=== PATIENT | male | born 1970 | race Caucasian/White ===

== ENCOUNTER 2017-10-11 17:05 | Inpatient (IN) | payer OTHER ==
[2017-10-11] MEDS ORDERED: Aspirin 325 mg EC Tablets PO STA (19:13)
--- NOTE | 2017-10-11 19:13 | C.PDOC ---
History Of Present Illness Patient, history of insulin dependent diabetes, comes in complaining of chest pain, radiating to his left arm since yesterday. He states the pain is dull, aching and pressure-like and is 4/10. He denies any associated fever, chills, nausea or vomiting. Time Seen by Provider: 10/11/17 19:12 Chief Complaint (Nursing): Chest Pain History Per: Patient History/Exam Limitations: no limitations Onset/Duration Of Symptoms: Days (1) Current Symptoms Are (Timing): Still Present Pain Scale Rating Of: 4 Quality: Dull, Aching, Pressure Associated Symptoms: denies: Nausea, Dyspnea, Diaphoresis, Syncope Modifying Factors: None Exacerbating Factors: None Alleviating Factors: None Recent travel outside of the [place]: No Additional History Per: Patient Past Medical History Reviewed: Historical Data, Nursing Documentation, Vital Signs Vital Signs: Last Vital Signs Temp 97.9 F 10/11/17 21:53 Pulse 54 L 10/11/17 21:53 Resp 14 10/11/17 21:53 BP 144/84 10/11/17 21:53 Pulse Ox 100 10/11/17 21:53 - Medical History PMH: Diabetes (insulin dependent) Surgical History: No Surg Hx Family History: States: No Known Family Hx - Social History Hx Alcohol Use: No Hx Substance Use: No - Immunization History Hx Tetanus Toxoid Vaccination: No Hx Influenza Vaccination: No Hx Pneumococcal Vaccination: No Review Of Systems Constitutional: Negative for: Fever, Chills, Sweats Eyes: Negative for: Redness ENT: Negative for: Throat Pain Cardiovascular: Positive for: Chest Pain Respiratory: Negative for: Shortness of Breath Gastrointestinal: Negative for: Vomiting Genitourinary: Negative for: Dysuria Musculoskeletal: Negative for: Back Pain Skin: Negative for: Rash Neurological: Negative for: Weakness Psych: Negative for: Anxiety Physical Exam - Physical Exam Appears: Non-toxic, No Acute Distress Skin: Warm, Dry Head: Atraumatic Eye(s): bilateral: Normal Inspection Oral Mucosa: Moist Throat: No Erythema, No Exudate, No Drooling, No Mass Neck: Supple Chest: Symmetrical, No Tenderness Cardiovascular: Rhythm Regular, No Murmur Respiratory: No Rales, No Rhonchi, No Wheezing Gastrointestinal/Abdominal: Soft, No Tenderness, No Guarding Back: No CVA Tenderness, No Vertebral Tenderness Extremity: No Tenderness, No Pedal Edema, No Deformity Extremity: Bilateral: Atraumatic, Normal Color And Temperature Pulses: Left Dorsalis Pedis: Normal, Right Dorsalis Pedis: Normal Neurological/Psych: Oriented x3, Normal Speech, Normal Cognition Gait: Steady ED Course And Treatment - Laboratory Results Result Diagrams: 10/11/17 19:23 10/11/17 19:54 ECG: Interpreted By Me, Viewed By Me ECG Rhythm: Sinus Rhythm (64), Nonspecific Changes (freq pvc's) O2 Sat by Pulse Oximetry: 100 (RA) Pulse Ox Interpretation: Normal - Radiology CXR: Interpreted by Me, Viewed By Me CXR Interpretation: No: Infiltrates, Fracture, Pnemothorax Progress Note: Labs, EKG, CXR and UA ordered. Patient given Aspirin 325mg PO. Disposition Discussed With DrSaurav: Raf Agustin Comment: accepted the pt on his service and took over the care at 10PM Doctor Will See Patient In The: ED Counseled Patient/Family Regarding: Studies Performed, Diagnosis - Disposition Disposition: HOSPITALIZED Disposition Time: 22:15 Condition: FAIR Forms: [employer] (Georgian) - POA Present On Arrival: Poor Glycemic Control - Clinical Impression Clinical Impression: Chest pain, PVC (premature ventricular contraction) - Scribe Statement The provider has reviewed the documentation as recorded by the Cecil Banerjee Provider Attestation: All medical record entries made by the Cecil were at my direction and personally dictated by me. I have reviewed the chart and agree that the record accurately reflects my personal performance of the history, physical exam, medical decision making, and the department course for this patient. I have also personally directed, reviewed, and agree with the discharge instructions and disposition. Decision To Admit - Pt Status Changed To: Hospital Disposition Of: Inpatient - Admit Certification Admit to Inpatient:: After my assessment, the patient will require hospitalization for at least two midnights. This is because of the severity of symptoms shown, intensity of services needed, and/or the medical risk in this patient being treated as an outpatient. - InPatient: Physician Admission Certification: I certify that this patient requires 2 or more midnights of care for the following reason:: After my assessment, the patient will require hospitalization for at least two midnights. This is because of the severity of symptoms shown, intensity of services needed, and/or the medical risk in this patient being treated as an outpatient - . Bed Request Type: Telemetry Admitting Physician: Raf Agustin Patient Diagnosis: Chest pain, PVC (premature ventricular contraction)
[2017-10-11 19:25] LABS: BASO # 0.2 K/uL (0.0-0.2); BASO % 1.9 % (0.0-2.0); EOS # 0.7 K/uL (0.0-0.7); EOS % 6.6 % (0.0-4.0); HEMOGLOBIN 16.4 g/dL (12.0-18.0); LYMPH # 3.6 K/uL (1.0-4.3); MEAN CELL VOLUME 81.3 fL (80.0-94.0); MEAN CORPUSCULAR HEMOGLOBIN 27.8 pg (27.0-31.0); MEAN CORPUSCULAR HGB CONC 34.2 g/dL (33.0-37.0); MEAN PLATELET VOLUME 9.7 fL (7.2-11.7); MONO # 0.6 K/uL (0.0-0.8); MONO % 6.1 % (0.0-10.0); NEUT # 5.2 K/uL (1.8-7.0); NEUT % 50.4 % (50.0-75.0); NRBC % 0.4 % (0.0-2.0); RBC 5.9 Mil/uL (4.40-5.90); RED CELL DISTRIBUTION WIDTH 13.6 % (11.5-14.5); WHITE BLOOD COUNT 10.3 K/uL (4.8-10.8)
[2017-10-11] MEDS ORDERED: Aspirin 325 mg EC Tablets PO ONE (19:37)
[2017-10-11 19:54] LABS: VENOUS BLOOD GAS BASE EXCESS -5.4 mmol/L (0.0-2.0); VENOUS BLOOD GAS PCO2 34 mmHg (40-60); VENOUS BLOOD GAS PO2 35 mm/Hg (30-55); VENOUS BLOOD PH 7.36 (7.32-7.43)
[2017-10-11 20:01] LABS: SQUAMOUS EPITHIAL < 1 /hpf (0-5); URINE BILIRUBIN NEGATIVE (NEGATIVE); URINE BLOOD NEGATIVE (NEGATIVE); URINE CLARITY Clear (Clear); URINE COLOR Yellow (YELLOW); URINE GLUCOSE (UA) 3+ mg/dL (Normal); URINE LEUKOCYTE ESTERASE NEG Leu/uL (Negative); URINE PROTEIN NEGATIVE (NEGATIVE); URINE UROBILINOGEN NORMAL mg/dL (0.2-1.0)
[2017-10-11 20:09] LABS: ALB/GLOB RATIO 1.6 (1.0-2.1); ALBUMIN 4.4 g/dL (3.5-5.0); ALT/SGPT 35 U/L (21-72); AST/SGOT 25 U/L (17-59); BLOOD UREA NITROGEN 18 mg/dL (9-20); CALCIUM 10.2 mg/dl (8.6-10.4); GFR NON-AFRICAN AMERICAN > 60; LIPASE 221 U/L (23-300)
--- NOTE | 2017-10-11 21:06 | RAD ---
HISTORY: chest pain COMPARISON: None available. TECHNIQUE: Chest, one view. FINDINGS: Examination limited by habitus. LUNGS: Mild pulmonary venous congestion. No focal consolidation. Please note that chest x-ray has limited sensitivity for the detection of pulmonary masses. PLEURA: No significant pleural effusion identified. No definite pneumothorax . CARDIOVASCULAR: Heart size appears within normal limits. OSSEOUS STRUCTURES: No acute osseous abnormality identified. VISUALIZED UPPER ABDOMEN: Unremarkable. OTHER FINDINGS: None. IMPRESSION: Mild pulmonary venous congestion.
[2017-10-12] MEDS ORDERED: Iodixanol 320 MG/ML 100 ML BOTTLE IV ONE (00:02)
[2017-10-12] MEDS ORDERED: Glucagon Recombinant 1 mg Inj IM PRN (02:08)
[2017-10-12] MEDS ORDERED: Dextrose 50% SYRINGE Inj (50 ml) IV PRN (02:08)
--- NOTE | 2017-10-12 02:11 | CP.PCM.HP ---
<VeroniqueRoxana L. - Last Filed: 10/12/17 03:28> History of Present Illness - History of Present Illness History of Present Illness: CC: SOB and chest pain HPI: 47 M with a PMH of type II diabetes and hep C (treated in 2009) presents to the ED with SOB and chest pain. Patient states the SOB started last night after walking up the stairs and moving his bed. Patient states he has associated dizziness and light headedness with the SOB. The dizziness is characterized as the room is spinning. Patient also states that he has had chest pain radiating to his left shoulder and down his left arm. Patient states that the chest pain started early today (10/12/17) and that he has had associated weakness and stiffness of his left UE. Patient denies any loss of sensation to the left UE. Patient has weakness of his left LE but has contributed the weakness to him not having eaten since the morning. On examination, patient denies fever, chills, nausea, vomiting, diarrhea, changes in urinary or bowel habits. PMH: diabetes, Hep C (treated in 2009) PSHx: none Social: denies smoking, alcohol, and drug use Family Hx: Mother [place] (69 y/o); Father- [place] (70 y/o) Allergies: NKDA Meds: Novolog 70/30 30 units in the morning/20 units in the evening Present on Admission - Present on Admission Any Indicators Present on Admission: No History of DVT/PE: No History of Uncontrolled Diabetes: No Urinary Catheter: No Decubitus Ulcer Present: No Review of Systems - Constitutional Constitutional: absent: Chills, Fever - EENT Eyes: absent: Blurred Vision - Cardiovascular Cardiovascular: Chest Pain, Dyspnea, Dyspnea on Exertion. absent: Palpitations , Pedal Edema - Respiratory Respiratory: Dyspnea - Gastrointestinal Gastrointestinal: Abdominal Pain. absent: Constipation, Diarrhea, Nausea, Vomiting - Genitourinary Genitourinary: absent: Dysuria, Hematuria - Musculoskeletal Musculoskeletal: Myalgias, Numbness (left shoulder ) - Integumentary Integumentary: absent: Rash - Neurological Neurological: Dizziness, Weakness (left arm and left leg ) Past Patient History - Past Social History Smoking Status: Never Smoked - ENDOCRINE/METABOLIC Hx Diabetes Mellitus Type 2: Yes - PSYCHIATRIC Hx Substance Use: No Meds Allergies/Adverse Reactions: Allergies Allergy/AdvReac Type Severity Reaction Status Date / Time No Known Allergies Allergy Verified 10/11/17 17:13 Physical Exam - Constitutional Appears: Non-toxic, No Acute Distress - Head Exam Head Exam: ATRAUMATIC, NORMAL INSPECTION, NORMOCEPHALIC - Eye Exam Eye Exam: EOMI, Normal appearance - ENT Exam ENT Exam: Mucous Membranes Moist - Respiratory Exam Respiratory Exam: Clear to Auscultation Bilateral, NORMAL BREATHING PATTERN - Cardiovascular Exam Cardiovascular Exam: Bradycardia, +S1, +S2 - GI/Abdominal Exam GI & Abdominal Exam: Normal Bowel Sounds, Soft, Tenderness Additional comments: LUQ tenderness - Extremities Exam Extremities exam: Negative for: pedal edema, tenderness - Back Exam Back exam: NORMAL INSPECTION - Neurological Exam Neurological exam: Alert, CN II-XII Intact, Oriented x3 - Expanded Neurological Exam Expanded Cranial nerves: EOM's Intact: Normal, Facial Palsey w/Forehead Movement: Normal , Facial Palsey w/o Forehead Movement: Normal, Facial Sensation: Normal, Nystagmus: Normal, Tongue Deviation: Normal Cerebellar Function: Finger to Nose: Abnormal Left, Heel to [place]: Abnormal Left Upper motor neuron: Babinski Sign: Normal Sensory exam: Lower Extremity 2 Point Discrimination: Normal Neuro motor strength exam: Left Upper Extremity: 4, Right Upper Extremity: 5, Left Lower Extremity: 5, Right Lower Extremity: 5 Coma Scale Eye Opening: SPONTANEOUS Coma Scale Motor Response: OBEYS COMMANDS - Psychiatric Exam Psychiatric exam: Normal Affect, Normal Mood - Skin Skin Exam: Intact, Normal Color, Warm Results - Vital Signs Recent Vital Signs: Last Vital Signs Temp 97.9 F 10/11/17 21:53 Pulse 49 L 10/12/17 01:08 Resp 14 10/12/17 01:08 BP 147/76 10/12/17 01:08 Pulse Ox 100 10/12/17 01:08 - Labs Result Diagrams: 10/11/17 19:23 10/11/17 19:54 Labs: Laboratory Results - last 24 hr 10/11/17 10/11/17 10/11/17 19:23 19:38 19:50 WBC 10.3 RBC 5.90 Hgb 16.4 Hct 48.0 MCV 81.3 MCH 27.8 MCHC 34.2 RDW 13.6 Plt Count 310 MPV 9.7 Neut % (Auto) 50.4 Lymph % (Auto) 35.0 [place] % (Auto) 6.1 Eos % (Auto) 6.6 H Baso % (Auto) 1.9 Neut # (Auto) 5.2 Lymph # (Auto) 3.6 [place] # (Auto) 0.6 Eos # (Auto) 0.7 Baso # (Auto) 0.2 pO2 35 VBG pH 7.36 VBG pCO2 34 L VBG HCO3 19.8 VBG Total CO2 20.2 L VBG O2 Sat (Calc) 70.2 H VBG Base Excess -5.4 L VBG Potassium 2.7 L Sodium 143.0 Chloride 112.0 H Glucose 207 H Lactate 1.2 Potassium Carbon Dioxide Anion Gap BUN Creatinine Est GFR ( Amer) Est GFR (Non-Af Amer) Random Glucose Calcium Total Bilirubin AST ALT Alkaline Phosphatase Troponin I Total Protein Albumin Globulin Albumin/Globulin Ratio Lipase Venous Blood Potassium 2.7 L Urine Color Yellow Urine Clarity Clear Urine pH 5.0 Ur Specific Cato 1.014 Urine Protein Negative Urine Glucose (UA) 3+ H Urine Ketones Negative Urine Blood Negative Urine Nitrate Negative Urine Bilirubin Negative Urine Urobilinogen Normal Ur Leukocyte Esterase Neg Urine WBC (Auto) < 1 Ur Squamous Epith Cells < 1 B-Hydroxybutyrate 10/11/17 19:54 WBC RBC Hgb Hct MCV MCH MCHC RDW Plt Count MPV Neut % (Auto) Lymph % (Auto) [place] % (Auto) Eos % (Auto) Baso % (Auto) Neut # (Auto) Lymph # (Auto) [place] # (Auto) Eos # (Auto) Baso # (Auto) pO2 VBG pH VBG pCO2 VBG HCO3 VBG Total CO2 VBG O2 Sat (Calc) VBG Base Excess VBG Potassium Sodium 138 Chloride 98 Glucose Lactate Potassium 4.6 Carbon Dioxide 28 Anion Gap 17 BUN 18 Creatinine 1.0 Est GFR ( Amer) > 60 Est GFR (Non-Af Amer) > 60 Random Glucose 271 H Calcium 10.2 Total Bilirubin 1.3 AST 25 ALT 35 Alkaline Phosphatase 67 Troponin I < 0.0120 Total Protein 7.2 Albumin 4.4 Globulin 2.8 Albumin/Globulin Ratio 1.6 Lipase 221 Venous Blood Potassium Urine Color Urine Clarity Urine pH Ur Specific [place] Urine Protein Urine Glucose (UA) Urine Ketones Urine Blood Urine Nitrate Urine Bilirubin Urine Urobilinogen Ur Leukocyte Esterase Urine WBC (Auto) Ur Squamous Epith Cells B-Hydroxybutyrate 0.08 Assessment & Plan - Assessment and Plan (Free Text) Assessment: Chest Pain EKG: NSR at 64bpm with PVCs Troponin I neg f/u KRISTIE x 2 Cxray: mild pulmonary venous congestion CTA: meds: ASA 325mg given in ED ASA 81mg po daily Crestor 5mg po daily Left Side Weakness CT head:no acute findings f/u MRI brain f/u carotid doppler neuro checks q4h Neuro consulted, Dr. Raphael, help appreciated meds: ASA 325mg given in ED ASA 81mg po daily Crestor 5mg po daily Dizziness Meclizine 25mg po one time dose in ER DMII accuchecks q6h hypoglycemia protocol home insulin Novolog 70/30 30 u in am 20 u pm, start with lower dose in hospital f/u HgA1C meds: Novolog 70/30 25u in am and 18 u in pm ISS- low dose Prophylaxis SCDs Pepcid 20mg po daily <Raf Agustin P - Last Filed: 10/12/17 05:23> Results - Vital Signs Recent Vital Signs: Last Vital Signs Temp 97.9 F 10/11/17 21:53 Pulse 49 L 10/12/17 01:08 Resp 14 10/12/17 01:08 BP 147/76 10/12/17 01:08 Pulse Ox 100 10/12/17 01:08 - Labs Result Diagrams: 10/12/17 04:51 10/11/17 19:54 Labs: Laboratory Results - last 24 hr 10/11/17 10/11/17 10/11/17 19:23 19:38 19:50 WBC 10.3 RBC 5.90 Hgb 16.4 Hct 48.0 MCV 81.3 MCH 27.8 MCHC 34.2 RDW 13.6 Plt Count 310 MPV 9.7 Neut % (Auto) 50.4 Lymph % (Auto) 35.0 [place] % (Auto) 6.1 Eos % (Auto) 6.6 H Baso % (Auto) 1.9 Neut # (Auto) 5.2 Lymph # (Auto) 3.6 [place] # (Auto) 0.6 Eos # (Auto) 0.7 Baso # (Auto) 0.2 pO2 35 VBG pH 7.36 VBG pCO2 34 L VBG HCO3 19.8 VBG Total CO2 20.2 L VBG O2 Sat (Calc) 70.2 H VBG Base Excess -5.4 L VBG Potassium 2.7 L Sodium 143.0 Chloride 112.0 H Glucose 207 H Lactate 1.2 Potassium Carbon Dioxide Anion Gap BUN Creatinine Est GFR ( Amer) Est GFR (Non-Af Amer) Random Glucose Calcium Total Bilirubin AST ALT Alkaline Phosphatase Troponin I Total Protein Albumin Globulin Albumin/Globulin Ratio Lipase Venous Blood Potassium 2.7 L Urine Color Yellow Urine Clarity Clear Urine pH 5.0 Ur Specific [place] 1.014 Urine Protein Negative Urine Glucose (UA) 3+ H Urine Ketones Negative Urine Blood Negative Urine Nitrate Negative Urine Bilirubin Negative Urine Urobilinogen Normal Ur Leukocyte Esterase Neg Urine WBC (Auto) < 1 Ur Squamous Epith Cells < 1 B-Hydroxybutyrate 10/11/17 10/12/17 19:54 04:51 WBC 9.5 RBC 5.73 Hgb 15.9 Hct 46.7 MCV 81.6 MCH 27.7 MCHC 33.9 RDW 13.4 Plt Count 287 MPV 9.1 Neut % (Auto) 50.8 Lymph % (Auto) 32.8 [place] % (Auto) 6.4 Eos % (Auto) 7.9 H Baso % (Auto) 2.1 H Neut # (Auto) 4.8 Lymph # (Auto) 3.1 [place] # (Auto) 0.6 Eos # (Auto) 0.7 Baso # (Auto) 0.2 pO2 VBG pH VBG pCO2 VBG HCO3 VBG Total CO2 VBG O2 Sat (Calc) VBG Base Excess VBG Potassium Sodium 138 Chloride 98 Glucose Lactate Potassium 4.6 Carbon Dioxide 28 Anion Gap 17 BUN 18 Creatinine 1.0 Est GFR ( Amer) > 60 Est GFR (Non-Af Amer) > 60 Random Glucose 271 H Calcium 10.2 Total Bilirubin 1.3 AST 25 ALT 35 Alkaline Phosphatase 67 Troponin I < 0.0120 Total Protein 7.2 Albumin 4.4 Globulin 2.8 Albumin/Globulin Ratio 1.6 Lipase 221 Venous Blood Potassium Urine Color Urine Clarity Urine pH Ur Specific [place] Urine Protein Urine Glucose (UA) Urine Ketones Urine Blood Urine Nitrate Urine Bilirubin Urine Urobilinogen Ur Leukocyte Esterase Urine WBC (Auto) Ur Squamous Epith Cells B-Hydroxybutyrate 0.08 Attending/Attestation - Attestation I have personally seen and examined this patient.: Yes I have fully participated in the care of the patient.: Yes I have reviewed all pertinent clinical information: Yes Notes (Text): 10/12/17 05:13 47 M from [place] on business trip to [place] arrived 4 day back, h/o uncontrolled dm on insulin, chronic sock like peripheral neuropathy, h/o hep c s/p treatment , h/o htn, presented with c/o chest discomfort for 1.5 days, SOB for same, left arm stiffness on 10/11 am, dizzness/vertigo positional in the ER was bradycardic and had pvc on EKG Exam findings were numbness on whole left side except the face, left arm 4/5 right arm 5/5, left leg 3/5, right leg 4/5, planters equivocal, slight nystagmus but presence of vertigo more on turning head right vs left, with nausea, no facial weakness, no dysarthia, no swallowing difficulty, positive rhomberg's test, with swaying front and back, wide gait. CT head in ER showed no acute changes CTA chest was done in view of his recent travel was negative for PE Plan DD of CVA/TIA of brain stem, BPV, atypical chest pain NIHHS score 4, duration > 3 hrs, not the candidate for thrombolysis To do MRI of brain, Echo, carotid doppler ASA, crestor Insulin to continue in lower dose due to being in hospital Hemoglobin A1C Neuro check Neurology consult See orders for detail. NIHSS Stroke Scale - Date/Time Evaluation Performed Date Performed: 10/11/17 Time Performed: 11:00 When Was NIHSS Performed: Baseline - How Severe is the Stoke Level of Consciousness: 0=Alert LOC to Questions: 0=Both comments correct LOC to commands: 0=Obeys both correctly Best Gaze: 0=Normal Visual: 0=No visual loss Facial: 0=Normal Motor Arm - Left: 0=No drift Motor Arm - Right: 0=No drift Motor Leg - Left: 2=Falls before 5 sec Motor Leg - Right: 1=Drift before 5 sec Limb Ataxia: 0=Absent Sensory: 1=Mild to moderate loss Best Language: 0=No aphasia Dysarthia: 0=Normal articulation Extinction & Inattention (Neglect): 0=Normal, no object Score: 4 Severity Of Stroke: 1-4= Minor Stroke (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 Past window of thrombolysis.)
[2017-10-12 05:03] LABS: BASO # 0.2 K/uL (0.0-0.2); BASO % 2.1 % (0.0-2.0); EOS # 0.7 K/uL (0.0-0.7); EOS % 7.9 % (0.0-4.0); HEMOGLOBIN 15.9 g/dL (12.0-18.0); LYMPH # 3.1 K/uL (1.0-4.3); LYMPH % 32.8 % (20.0-40.0); MEAN CELL VOLUME 81.6 fL (80.0-94.0); MEAN CORPUSCULAR HEMOGLOBIN 27.7 pg (27.0-31.0); MEAN CORPUSCULAR HGB CONC 33.9 g/dL (33.0-37.0); MEAN PLATELET VOLUME 9.1 fL (7.2-11.7); MONO # 0.6 K/uL (0.0-0.8); MONO % 6.4 % (0.0-10.0); NEUT # 4.8 K/uL (1.8-7.0); NEUT % 50.8 % (50.0-75.0); NRBC % 0.2 % (0.0-2.0); RBC 5.73 Mil/uL (4.40-5.90); RED CELL DISTRIBUTION WIDTH 13.4 % (11.5-14.5); WHITE BLOOD COUNT 9.5 K/uL (4.8-10.8)
[2017-10-12 05:29] LABS: LDL CHOLESTEROL 91 mg/dL (0-129)
[2017-10-12 05:52] LABS: ALB/GLOB RATIO 1.3 (1.0-2.1); ALBUMIN 4.1 g/dL (3.5-5.0); ALT/SGPT 35 U/L (21-72); AST/SGOT 34 U/L (17-59); BLOOD UREA NITROGEN 17 mg/dL (9-20); CALCIUM 9.5 mg/dl (8.6-10.4); GFR NON-AFRICAN AMERICAN > 60; HDL CHOLESTEROL 33 mg/dL (30-70)
--- NOTE | 2017-10-12 08:15 | CT ---
Date of service: 10/12/2017 PROCEDURE: CT HEAD WITHOUT CONTRAST. HISTORY: left sided weakness, r/o CVA COMPARISON: None available. TECHNIQUE: Axial computed tomography images were obtained through the head/brain without intravenous contrast. Radiation dose: Total exam DLP = 768 mGy-cm. This CT exam was performed using one or more of the following dose reduction techniques: Automated exposure control, adjustment of the mA and/or kV according to patient size, and/or use of iterative reconstruction technique. FINDINGS: HEMORRHAGE: No intracranial hemorrhage. BRAIN: No mass effect or edema. No atrophy or chronic microvascular ischemic changes. VENTRICLES: Unremarkable. No hydrocephalus. CALVARIUM: Unremarkable. PARANASAL SINUSES: Moderate patchy sinus mucosal disease. Moderate mucosal thickening of the ethmoid air cells. MASTOID AIR CELLS: Unremarkable as visualized. No inflammatory changes. OTHER FINDINGS: None. IMPRESSION: No acute intracranial abnormality. If there is persistent concern for acute ischemic change, consider correlation with MRI. These findings were preliminarily reported at 12:58 a.m. on 10/12/[address] Fracisco Sim from [facility].
[2017-10-12] MEDS ORDERED: (Novolin R) Insulin Human Regular 100 units/ml vial ONE (08:17)
[2017-10-12] MEDS: (Novolin R) Insulin Human Regular 100 units/ml vial SC SCH ×4 (08:17→21:47)
--- NOTE | 2017-10-12 10:17 | CP.PCM.PN ---
Subjective - Date & Time of Evaluation Date of Evaluation: 10/12/17 Time of Evaluation: 10:14 - Subjective Subjective: Pt seen and examined at bedside. Pt reports his left sided weakness has improved but remains noticeable. Pt is concerned about his diabetes and wants insulin. Pt has no complaints of numbness/tingling, LOC, dizziness, change in vision, change in speech, memory loss or dysphagia. Pt denies cp, cob, f/c, n/v , leg pains Objective - Vital Signs/Intake and Output Vital Signs (last 24 hours): Temp Pulse Resp BP Pulse Ox 97.9 F 74 16 134/89 99 10/12/17 10:11 10/12/17 10:11 10/12/17 10:11 10/12/17 10:11 10/12/17 10:11 - Medications Medications: Current Medications Aspirin (Ecotrin) 81 mg PO DAILY KISHAN Dextrose (Dextrose 50% Inj) 0 ml IV STAT PRN; Protocol PRN Reason: Hypoglycemia Protocol Dextrose (Glutose 15) 0 gm PO ONCE PRN; Protocol PRN Reason: Hypoglycemia Protocol Famotidine (Pepcid) 20 mg PO DAILY KISHAN Glucagon (Glucagen Diagnostic Kit) 0 mg IM STAT PRN; Protocol PRN Reason: Hypoglycemia Protocol Dextrose (Dextrose 5% In Water 1000 Ml) 1,000 mls @ 0 mls/hr IV .Q0M PRN; Protocol; Per Protocol PRN Reason: Hypoglycemia Protocol Insulin Aspart (Novolog Mix 70/30 (70/30 Units/Ml)) 25 units SC DAILY KISHAN Insulin Aspart (Novolog Mix 70/30 (70/30 Units/Ml)) 18 units SC HS [facility] Insulin Human Regular (Novolin R) 0 unit SC ACHS KISHAN PRN Reason: Protocol Last Admin: 10/12/17 08:17 Dose: 2 units Rosuvastatin Calcium (Crestor) 5 mg PO HS KISHAN - Labs Labs: 10/12/17 04:51 10/12/17 04:51 - Constitutional Appears: Well, Non-toxic, No Acute Distress - Eye Exam Eye Exam: EOMI, Normal appearance, PERRL. absent: Scleral icterus - Neck Exam Neck Exam: Normal Inspection - Respiratory Exam Respiratory Exam: Clear to Ausculation Bilateral, NORMAL BREATHING PATTERN. absent: Wheezes, Respiratory Distress, Stridor - Cardiovascular Exam Cardiovascular Exam: RRR, +S1, +S2. absent: Murmur - GI/Abdominal Exam GI & Abdominal Exam: Soft, Normal Bowel Sounds. absent: Tenderness, Diminished Bowel Sounds - Extremities Exam Extremities Exam: Normal Capillary Refill, Normal Inspection. absent: Pedal Edema, Tenderness Additional comments: L michael: ROM decreased in flex, ext, abduction, interna;l and external rotation Positive campbell, apprehension, neer's - Back Exam Back Exam: NORMAL INSPECTION - Neurological Exam Neurological Exam: Alert, Awake, CN II-XII Intact, Oriented x3 Neuro motor strength exam: Left Upper Extremity: 5, Right Upper Extremity: 5, Left Lower Extremity: 5 Additional comments: normal cerebellar nose finger test normal sensation in extremities neg pronator drift Assessment and Plan - Assessment and Plan (Free Text) Assessment: Chest Pain -ASA 81mg po daily -Crestor 5mg po daily -EKG: NSR at 64bpm with PVCs -Troponin I neg x 3 -KRISTIE neg x 2 -Cxray: mild pulmonary venous congestion -CTA: neg for PE -trigly: 297 Left Side Weakness -CT head:no acute findings -f/u morning CT ordered -NEG carotid doppler -neuro checks q4h -Neuro consulted, Dr. Raphael, help appreciated -oral hygiene -L michael Xray f/u Dizziness Meclizine 25mg po one time dose in ER DMII -Novolog 70/30 25u AM daily and 18u HS -ISS- low dose -accuchecks q6h -hypoglycemia protocol -10.1 HgA1C DM neuropathy -glucose control -gabapentin 100mg TID Prophylaxis SCDs Pepcid 20mg po daily
--- NOTE | 2017-10-12 10:40 | CT ---
Date of service: 10/12/2017 CTA chest PE protocol Indication: Shortness of breath, recent travel Technique: Contiguous axial images were obtained through the chest with intravenous contrast enhancement. Sagittal and coronal reconstructions were generated and reviewed. This CT exam was performed using 1 or more of the following dose reduction techniques: Automated exposure control, adjustment of the MAA and/or kV according to patient size, and/or use of iterative reconstruction technique. IV Contrast: 100 mL Visipaque 320 Radiation dose (DLP): 298.96 MGy-cm. Comparison: Chest x-ray performed 10/11/17 Findings: Visualized portions of the inferior thyroid gland appear heterogeneous. The mediastinal and hilar vascular structures appear within normal limits. The heart appears within normal limits of size. No large central or segmental pulmonary embolus evident. Patchy ground-glass opacities/ infiltrates. Minimal peribronchial cuffing. No focal consolidation. No pleural effusion. No pneumothorax. No suspicious pulmonary nodules measuring greater than 5 mm. Limited visualized portions of the upper abdomen appear grossly unremarkable. No acute osseous abnormality is detected. Impression: No large central or segmental pulmonary embolus. Patchy ground-glass opacities/ infiltrates. Minimal peribronchial cuffing. Correlate clinically. Additional findings as above. Preliminary impression was provided by [facility].
[2017-10-12] MEDS: (Novolog Mix 70/30) Insulin Aspart/Insulin Aspar 100 units/ml SC SCH (11:04)
--- NOTE | 2017-10-12 11:58 | CP.PCM.CON ---
<Micki Rojas - Last Filed: 10/12/17 17:10> History of Present Illness - History of Present Illness History of Present Illness: Cardiology Consult Note - Dr Manzano Patient is a 47 year old male with past medical history of diabetes mellitus who presented to the emergency dept for chest pain and shortness of breath. Patient states that he walking up the stairs yesterday and after the second flight, he started experiencing chest pain. Chest pain was left sided and radiates down the left arm. Described the pain as dull in nature. When pain started it was 7/10 on the pain scale. Never happened to him before. Denies any alleviating and exacerbating factors. Chest pain was associated with shortness of breath. Shortness of breath is worse on exertion. Patient recently traveled [place] the [place] from the [place] 6 [place] ago. Also reports having left arm weakness. Allergies: NKDA Medical History: Diabetes Mellitus, Hepatitis C (treated) Medications: Novolog 70/30 30 units in the morning/20 units in the evening, ASA 81mg PO daily Surgical History: Denies Social History: Denies alcohol, tobacco, drug use Family History: Mother - [place] at age 69, Father - [place] at age 70 Past Patient History - Past Social History Smoking Status: Never Smoked - ENDOCRINE/METABOLIC Hx Diabetes Mellitus Type 2: Yes - PSYCHIATRIC Hx Substance Use: No Meds Allergies/Adverse Reactions: Allergies Allergy/AdvReac Type Severity Reaction Status Date / Time No Known Allergies Allergy Verified 10/11/17 17:13 - Medications Medications: Current Medications Aspirin (Ecotrin) 81 mg PO DAILY [facility] Last Admin: 10/12/17 11:05 Dose: 81 mg Dextrose (Dextrose 50% Inj) 0 ml IV STAT PRN; Protocol PRN Reason: Hypoglycemia Protocol Dextrose (Glutose 15) 0 gm PO ONCE PRN; Protocol PRN Reason: Hypoglycemia Protocol Famotidine (Pepcid) 20 mg PO DAILY [facility] Last Admin: 10/12/17 11:05 Dose: 20 mg Glucagon (Glucagen Diagnostic Kit) 0 mg IM STAT PRN; Protocol PRN Reason: Hypoglycemia Protocol Dextrose (Dextrose 5% In Water 1000 Ml) 1,000 mls @ 0 mls/hr IV .Q0M PRN; Protocol; Per Protocol PRN Reason: Hypoglycemia Protocol Insulin Aspart (Novolog Mix 70/30 (70/30 Units/Ml)) 25 units SC DAILY [facility] Last Admin: 10/12/17 11:04 Dose: 25 units Insulin Aspart (Novolog Mix 70/30 (70/30 Units/Ml)) 18 units SC HS [facility] Insulin Human Regular (Novolin R) 0 unit SC [facility] PRN Reason: Protocol Last Admin: 10/12/17 08:17 Dose: 2 units Rosuvastatin Calcium (Crestor) 5 mg PO HS [facility] Physical Exam - Constitutional Appears: Well, No Acute Distress - Head Exam Head Exam: ATRAUMATIC, NORMAL INSPECTION - Eye Exam Eye Exam: EOMI, Normal appearance - ENT Exam ENT Exam: Mucous Membranes Moist - Respiratory Exam Respiratory Exam: Clear to Auscultation Bilateral, NORMAL BREATHING PATTERN. absent: Rales, Rhonchi, Wheezes - Cardiovascular Exam Cardiovascular Exam: REGULAR RHYTHM, +S1, +S2 - GI/Abdominal Exam GI & Abdominal Exam: Soft. absent: Normal Bowel Sounds - Extremities Exam Extremities exam: Positive for: normal inspection - Neurological Exam Neurological exam: Alert, Oriented x3 - Psychiatric Exam Psychiatric exam: Normal Affect, Normal Mood - Skin Skin Exam: Normal Color, Warm Results - Vital Signs Recent Vital Signs: Last Vital Signs Temp 97.9 F 10/12/17 10:11 Pulse 74 10/12/17 10:11 Resp 18 10/12/17 10:13 BP 134/89 10/12/17 10:11 Pulse Ox 99 10/12/17 10:11 - Labs Result Diagrams: 10/12/17 04:51 10/12/17 04:51 Labs: Laboratory Results - last 24 hr 10/11/17 10/11/17 10/11/17 19:23 19:38 19:50 WBC 10.3 RBC 5.90 Hgb 16.4 Hct 48.0 MCV 81.3 MCH 27.8 MCHC 34.2 RDW 13.6 Plt Count 310 MPV 9.7 Neut % (Auto) 50.4 Lymph % (Auto) 35.0 [place] % (Auto) 6.1 Eos % (Auto) 6.6 H Baso % (Auto) 1.9 Neut # (Auto) 5.2 Lymph # (Auto) 3.6 [place] # (Auto) 0.6 Eos # (Auto) 0.7 Baso # (Auto) 0.2 pO2 35 VBG pH 7.36 VBG pCO2 34 L VBG HCO3 19.8 VBG Total CO2 20.2 L VBG O2 Sat (Calc) 70.2 H VBG Base Excess -5.4 L VBG Potassium 2.7 L Sodium 143.0 Chloride 112.0 H Glucose 207 H Lactate 1.2 Potassium Carbon Dioxide Anion Gap BUN Creatinine Est GFR ( Amer) Est GFR (Non-Af Amer) POC Glucose (mg/dL) Random Glucose Hemoglobin A1c Calcium Phosphorus Magnesium Total Bilirubin AST ALT Alkaline Phosphatase Total Creatine Kinase CK-MB (Mass) Troponin I Total Protein Albumin Globulin Albumin/Globulin Ratio Triglycerides Cholesterol LDL Cholesterol Direct HDL Cholesterol Lipase Free T4 TSH 3rd Generation Venous Blood Potassium 2.7 L Urine Color Yellow Urine Clarity Clear Urine pH 5.0 Ur Specific [place] 1.014 Urine Protein Negative Urine Glucose (UA) 3+ H Urine Ketones Negative Urine Blood Negative Urine Nitrate Negative Urine Bilirubin Negative Urine Urobilinogen Normal Ur Leukocyte Esterase Neg Urine WBC (Auto) < 1 Ur Squamous Epith Cells < 1 B-Hydroxybutyrate 10/11/17 10/12/17 10/12/17 19:54 04:51 04:51 WBC 9.5 RBC 5.73 Hgb 15.9 Hct 46.7 MCV 81.6 MCH 27.7 MCHC 33.9 RDW 13.4 Plt Count 287 MPV 9.1 Neut % (Auto) 50.8 Lymph % (Auto) 32.8 [place] % (Auto) 6.4 Eos % (Auto) 7.9 H Baso % (Auto) 2.1 H Neut # (Auto) 4.8 Lymph # (Auto) 3.1 [place] # (Auto) 0.6 Eos # (Auto) 0.7 Baso # (Auto) 0.2 pO2 VBG pH VBG pCO2 VBG HCO3 VBG Total CO2 VBG O2 Sat (Calc) VBG Base Excess VBG Potassium Sodium 138 137 Chloride 98 99 Glucose Lactate Potassium 4.6 4.5 Carbon Dioxide 28 26 Anion Gap 17 16 BUN 18 17 Creatinine 1.0 0.9 Est GFR ( Amer) > 60 > 60 Est GFR (Non-Af Amer) > 60 > 60 POC Glucose (mg/dL) Random Glucose 271 H 268 H Hemoglobin A1c Calcium 10.2 9.5 Phosphorus 3.9 Magnesium 1.9 Total Bilirubin 1.3 1.5 H AST 25 34 ALT 35 35 Alkaline Phosphatase 67 75 Total Creatine Kinase CK-MB (Mass) Troponin I < 0.0120 Total Protein 7.2 7.4 Albumin 4.4 4.1 Globulin 2.8 3.3 Albumin/Globulin Ratio 1.6 1.3 Triglycerides 279 H Cholesterol 164 LDL Cholesterol Direct 91 HDL Cholesterol 33 Lipase 221 Free T4 TSH 3rd Generation 2.00 Venous Blood Potassium Urine Color Urine Clarity Urine pH Ur Specific [place] Urine Protein Urine Glucose (UA) Urine Ketones Urine Blood Urine Nitrate Urine Bilirubin Urine Urobilinogen Ur Leukocyte Esterase Urine WBC (Auto) Ur Squamous Epith Cells B-Hydroxybutyrate 0.08 10/12/17 10/12/17 10/12/17 04:51 04:51 04:51 WBC RBC Hgb Hct MCV MCH MCHC RDW Plt Count MPV Neut % (Auto) Lymph % (Auto) [place] % (Auto) Eos % (Auto) Baso % (Auto) Neut # (Auto) Lymph # (Auto) [place] # (Auto) Eos # (Auto) Baso # (Auto) pO2 VBG pH VBG pCO2 VBG HCO3 VBG Total CO2 VBG O2 Sat (Calc) VBG Base Excess VBG Potassium Sodium Chloride Glucose Lactate Potassium Carbon Dioxide Anion Gap BUN Creatinine Est GFR ( Amer) Est GFR (Non-Af Amer) POC Glucose (mg/dL) Random Glucose Hemoglobin A1c 10.4 H Calcium Phosphorus Magnesium Total Bilirubin AST ALT Alkaline Phosphatase Total Creatine Kinase 78 CK-MB (Mass) 0.40 Troponin I < 0.0120 Total Protein Albumin Globulin Albumin/Globulin Ratio Triglycerides Cholesterol LDL Cholesterol Direct HDL Cholesterol Lipase Free T4 1.26 TSH 3rd Generation Venous Blood Potassium Urine Color Urine Clarity Urine pH Ur Specific [place] Urine Protein Urine Glucose (UA) Urine Ketones Urine Blood Urine Nitrate Urine Bilirubin Urine Urobilinogen Ur Leukocyte Esterase Urine WBC (Auto) Ur Squamous Epith Cells B-Hydroxybutyrate 10/12/17 10/12/17 06:15 07:38 WBC RBC Hgb Hct MCV MCH MCHC RDW Plt Count MPV Neut % (Auto) Lymph % (Auto) [place] % (Auto) Eos % (Auto) Baso % (Auto) Neut # (Auto) Lymph # (Auto) [place] # (Auto) Eos # (Auto) Baso # (Auto) pO2 VBG pH VBG pCO2 VBG HCO3 VBG Total CO2 VBG O2 Sat (Calc) VBG Base Excess VBG Potassium Sodium Chloride Glucose Lactate Potassium Carbon Dioxide Anion Gap BUN Creatinine Est GFR ( Amer) Est GFR (Non-Af Amer) POC Glucose (mg/dL) 243 H 245 H Random Glucose Hemoglobin A1c Calcium Phosphorus Magnesium Total Bilirubin AST ALT Alkaline Phosphatase Total Creatine Kinase CK-MB (Mass) Troponin I Total Protein Albumin Globulin Albumin/Globulin Ratio Triglycerides Cholesterol LDL Cholesterol Direct HDL Cholesterol Lipase Free T4 TSH 3rd Generation Venous Blood Potassium Urine Color Urine Clarity Urine pH Ur Specific [place] Urine Protein Urine Glucose (UA) Urine Ketones Urine Blood Urine Nitrate Urine Bilirubin Urine Urobilinogen Ur Leukocyte Esterase Urine WBC (Auto) Ur Squamous Epith Cells B-Hydroxybutyrate Assessment & Plan - Assessment and Plan (Free Text) Assessment: A/P: Patient is a 47 year old male with past medical history of Diabetes Mellitus on Insulin and Hepatits C (treated in 2009) who presented with chest pain and shortness of breath Chest pain r/o ACS -Stable, afebrile -Monitor on telemetry -EKG on admission was sinus rhythm with PVCs -Troponins negative x 3 -ASCVD score 6.2% of cardiovascular event in next 10 years -Given risk factors, will order stress test for tomorrow -NPO for breakfast Diabetes Mellitus -HgbA1C 10.4 -Continue insulin and accuchecks ACHS Hypertriglyceridemia -Triglycerides 279, Cholesterol 164, LDL 91, HDL 33 -Continue Crestor 5mg PO HS Left arm weakness -F/U MRI brain -Neurology on consult, help appreciated Plan to be discussed with Dr Jose Juan HOLLAND PGY-2 <Edu Manzano - Last Filed: 10/12/17 23:21> Meds - Medications Medications: Current Medications Aspirin (Ecotrin) 81 mg PO DAILY [facility] Last Admin: 10/12/17 11:05 Dose: 81 mg Dextrose (Dextrose 50% Inj) 0 ml IV STAT PRN; Protocol PRN Reason: Hypoglycemia Protocol Dextrose (Glutose 15) 0 gm PO ONCE PRN; Protocol PRN Reason: Hypoglycemia Protocol Famotidine (Pepcid) 20 mg PO DAILY [facility] Last Admin: 10/12/17 11:05 Dose: 20 mg Gabapentin (Neurontin) 100 mg PO TID [facility] Last Admin: 10/12/17 17:31 Dose: 100 mg Glucagon (Glucagen Diagnostic Kit) 0 mg IM STAT PRN; Protocol PRN Reason: Hypoglycemia Protocol Dextrose (Dextrose 5% In Water 1000 Ml) 1,000 mls @ 0 mls/hr IV .Q0M PRN; Protocol; Per Protocol PRN Reason: Hypoglycemia Protocol Insulin Aspart (Novolog Mix 70/30 (70/30 Units/Ml)) 25 units SC DAILY [facility] Last Admin: 10/12/17 11:04 Dose: 25 units Insulin Aspart (Novolog Mix 70/30 (70/30 Units/Ml)) 18 units SC [facility] Last Admin: 10/12/17 21:45 Dose: 18 units Insulin Human Regular (Novolin R) 0 unit SC [facility] PRN Reason: Protocol Last Admin: 10/12/17 21:47 Dose: Not Given Lisinopril (Zestril) 2.5 mg PO DAILY [facility] Last Admin: 10/12/17 14:39 Dose: 2.5 mg Pneumococcal Polyvalent Vaccine (Pneumovax 23 Vaccine) 0.5 ml IM .ONCE ONE Stop: 10/14/17 10:01 Rosuvastatin Calcium (Crestor) 5 mg PO [facility] Last Admin: 10/12/17 21:47 Dose: 5 mg Results - Vital Signs Recent Vital Signs: Last Vital Signs Temp 97.8 F 10/12/17 16:00 Pulse 46 L 10/12/17 16:00 Resp 20 10/12/17 16:00 BP 126/74 10/12/17 16:00 Pulse Ox 95 10/12/17 16:00 - Labs Result Diagrams: 10/12/17 04:51 10/12/17 04:51 Labs: Laboratory Results - last 24 hr 10/12/17 10/12/17 10/12/17 04:51 04:51 04:51 WBC 9.5 RBC 5.73 Hgb 15.9 Hct 46.7 MCV 81.6 MCH 27.7 MCHC 33.9 RDW 13.4 Plt Count 287 MPV 9.1 Neut % (Auto) 50.8 Lymph % (Auto) 32.8 [place] % (Auto) 6.4 Eos % (Auto) 7.9 H Baso % (Auto) 2.1 H Neut # (Auto) 4.8 Lymph # (Auto) 3.1 [place] # (Auto) 0.6 Eos # (Auto) 0.7 Baso # (Auto) 0.2 Sodium 137 Potassium 4.5 Chloride 99 Carbon Dioxide 26 Anion Gap 16 BUN 17 Creatinine 0.9 Est GFR ( Amer) > 60 Est GFR (Non-Af Amer) > 60 POC Glucose (mg/dL) Random Glucose 268 H Hemoglobin A1c 10.4 H Calcium 9.5 Phosphorus 3.9 Magnesium 1.9 Total Bilirubin 1.5 H AST 34 ALT 35 Alkaline Phosphatase 75 Total Creatine Kinase CK-MB (Mass) Troponin I Total Protein 7.4 Albumin 4.1 Globulin 3.3 Albumin/Globulin Ratio 1.3 Triglycerides 279 H Cholesterol 164 LDL Cholesterol Direct 91 HDL Cholesterol 33 Free T4 TSH 3rd Generation 2.00 10/12/17 10/12/17 10/12/17 04:51 04:51 06:15 WBC RBC Hgb Hct MCV MCH MCHC RDW Plt Count MPV Neut % (Auto) Lymph % (Auto) [place] % (Auto) Eos % (Auto) Baso % (Auto) Neut # (Auto) Lymph # (Auto) [place] # (Auto) Eos # (Auto) Baso # (Auto) Sodium Potassium Chloride Carbon Dioxide Anion Gap BUN Creatinine Est GFR ( Amer) Est GFR (Non-Af Amer) POC Glucose (mg/dL) 243 H Random Glucose Hemoglobin A1c Calcium Phosphorus Magnesium Total Bilirubin AST ALT Alkaline Phosphatase Total Creatine Kinase 78 CK-MB (Mass) 0.40 Troponin I < 0.0120 Total Protein Albumin Globulin Albumin/Globulin Ratio Triglycerides Cholesterol LDL Cholesterol Direct HDL Cholesterol Free T4 1.26 TSH 3rd Generation 10/12/17 10/12/17 10/12/17 07:38 11:47 13:32 WBC RBC Hgb Hct MCV MCH MCHC RDW Plt Count MPV Neut % (Auto) Lymph % (Auto) [place] % (Auto) Eos % (Auto) Baso % (Auto) Neut # (Auto) Lymph # (Auto) [place] # (Auto) Eos # (Auto) Baso # (Auto) Sodium Potassium Chloride Carbon Dioxide Anion Gap BUN Creatinine Est GFR ( Amer) Est GFR (Non-Af Amer) POC Glucose (mg/dL) 245 H 285 H Random Glucose Hemoglobin A1c Calcium Phosphorus Magnesium Total Bilirubin AST ALT Alkaline Phosphatase Total Creatine Kinase 67 CK-MB (Mass) 0.28 Troponin I < 0.0120 Total Protein Albumin Globulin Albumin/Globulin Ratio Triglycerides Cholesterol LDL Cholesterol Direct HDL Cholesterol Free T4 TSH 3rd Generation 10/12/17 15:59 WBC RBC Hgb Hct MCV MCH MCHC RDW Plt Count MPV Neut % (Auto) Lymph % (Auto) [place] % (Auto) Eos % (Auto) Baso % (Auto) Neut # (Auto) Lymph # (Auto) [place] # (Auto) Eos # (Auto) Baso # (Auto) Sodium Potassium Chloride Carbon Dioxide Anion Gap BUN Creatinine Est GFR ( Amer) Est GFR (Non-Af Amer) POC Glucose (mg/dL) 247 H Random Glucose Hemoglobin A1c Calcium Phosphorus Magnesium Total Bilirubin AST ALT Alkaline Phosphatase Total Creatine Kinase CK-MB (Mass) Troponin I Total Protein Albumin Globulin Albumin/Globulin Ratio Triglycerides Cholesterol LDL Cholesterol Direct HDL Cholesterol Free T4 TSH 3rd Generation Assessment & Plan - Assessment and Plan (Free Text) Assessment: Patient seen and evaluated personally by [place] Plan of care d/w the resident and as documented
[2017-10-12 12:31] LABS: CK-MB 0.28 ng/mL (0.0-3.38)
--- NOTE | 2017-10-12 13:45 | CP.PCM.CON ---
History of Present Illness - History of Present Illness History of Present Illness: PGY 1 Consult Note for Neurologist Dr. Raphael Patient is a 47 year old male with PMHx of DM, and Hep-c who came to the ED due to weakness of left arm, and shortness of breath for 24 hours. Patient states that he traveled from [place] last week. Patient also reports of left shoulder pain that is constant, but denies any numbness, or tingling. He also reports of localized chest pain that only worsens with deep breathing, and radiates to his left arm. Denies any dizziness, lightheadedness, nausea, or vomiting. PMHx: DM, Hep-C PSHx: denies Allergies: NKDA Family Hx: mother and father 2/2 to [place] Social Hx: denies tobacco or alcohol use. works as an accountant cost Review of Systems - EENT Eyes: absent: Blurred Vision, Change in Vision - Cardiovascular Cardiovascular: Chest Pain, Dyspnea on Exertion. absent: Lightheadedness, Palpitations - Gastrointestinal Gastrointestinal: Constipation. absent: Diarrhea - Neurological Neurological: absent: Abnormal Movements, Abnormal Speech, Dizziness, Numbness, Tingling Past Patient History - Past Social History Smoking Status: Never Smoked - ENDOCRINE/METABOLIC Hx Diabetes Mellitus Type 2: Yes - PSYCHIATRIC Hx Substance Use: No Meds Allergies/Adverse Reactions: Allergies Allergy/AdvReac Type Severity Reaction Status Date / Time No Known Allergies Allergy Verified 10/11/17 17:13 - Medications Medications: Current Medications Aspirin (Ecotrin) 81 mg PO DAILY [facility] Last Admin: 10/12/17 11:05 Dose: 81 mg Dextrose (Dextrose 50% Inj) 0 ml IV STAT PRN; Protocol PRN Reason: Hypoglycemia Protocol Dextrose (Glutose 15) 0 gm PO ONCE PRN; Protocol PRN Reason: Hypoglycemia Protocol Famotidine (Pepcid) 20 mg PO DAILY [facility] Last Admin: 10/12/17 11:05 Dose: 20 mg Glucagon (Glucagen Diagnostic Kit) 0 mg IM STAT PRN; Protocol PRN Reason: Hypoglycemia Protocol Dextrose (Dextrose 5% In Water 1000 Ml) 1,000 mls @ 0 mls/hr IV .Q0M PRN; Protocol; Per Protocol PRN Reason: Hypoglycemia Protocol Insulin Aspart (Novolog Mix 70/30 (70/30 Units/Ml)) 25 units SC DAILY [facility] Last Admin: 10/12/17 11:04 Dose: 25 units Insulin Aspart (Novolog Mix 70/30 (70/30 Units/Ml)) 18 units SC HS [facility] Insulin Human Regular (Novolin R) 0 unit SC [facility] PRN Reason: Protocol Last Admin: 10/12/17 08:17 Dose: 2 units Rosuvastatin Calcium (Crestor) 5 mg PO HS [facility] Physical Exam - Constitutional Appears: Well, No Acute Distress - Head Exam Head Exam: ATRAUMATIC - Eye Exam Eye Exam: EOMI, Normal appearance Pupil Exam: PERRL - Neurological Exam Neurological exam: Alert, CN II-XII Intact, Oriented x3, Reflexes Normal - Expanded Neurological Exam Expanded Cranial nerves: EOM's Intact: Normal Neuro motor strength exam: Left Upper Extremity: 5, Right Upper Extremity: 5, Left Lower Extremity: 5, Right Lower Extremity: 5 - Psychiatric Exam Psychiatric exam: Normal Affect, Normal Mood Results - Vital Signs Recent Vital Signs: Last Vital Signs Temp 97.9 F 10/12/17 10:11 Pulse 74 10/12/17 10:11 Resp 18 10/12/17 10:13 BP 134/89 10/12/17 10:11 Pulse Ox 99 10/12/17 10:11 - Labs Result Diagrams: 10/12/17 04:51 10/12/17 04:51 Labs: Laboratory Results - last 24 hr 10/11/17 10/11/17 10/11/17 19:23 19:38 19:50 WBC 10.3 RBC 5.90 Hgb 16.4 Hct 48.0 MCV 81.3 MCH 27.8 MCHC 34.2 RDW 13.6 Plt Count 310 MPV 9.7 Neut % (Auto) 50.4 Lymph % (Auto) 35.0 [place] % (Auto) 6.1 Eos % (Auto) 6.6 H Baso % (Auto) 1.9 Neut # (Auto) 5.2 Lymph # (Auto) 3.6 [place] # (Auto) 0.6 Eos # (Auto) 0.7 Baso # (Auto) 0.2 pO2 35 VBG pH 7.36 VBG pCO2 34 L VBG HCO3 19.8 VBG Total CO2 20.2 L VBG O2 Sat (Calc) 70.2 H VBG Base Excess -5.4 L VBG Potassium 2.7 L Sodium 143.0 Chloride 112.0 H Glucose 207 H Lactate 1.2 Potassium Carbon Dioxide Anion Gap BUN Creatinine Est GFR ( Amer) Est GFR (Non-Af Amer) POC Glucose (mg/dL) Random Glucose Hemoglobin A1c Calcium Phosphorus Magnesium Total Bilirubin AST ALT Alkaline Phosphatase Total Creatine Kinase CK-MB (Mass) Troponin I Total Protein Albumin Globulin Albumin/Globulin Ratio Triglycerides Cholesterol LDL Cholesterol Direct HDL Cholesterol Lipase Free T4 TSH 3rd Generation Venous Blood Potassium 2.7 L Urine Color Yellow Urine Clarity Clear Urine pH 5.0 Ur Specific [place] 1.014 Urine Protein Negative Urine Glucose (UA) 3+ H Urine Ketones Negative Urine Blood Negative Urine Nitrate Negative Urine Bilirubin Negative Urine Urobilinogen Normal Ur Leukocyte Esterase Neg Urine WBC (Auto) < 1 Ur Squamous Epith Cells < 1 B-Hydroxybutyrate 10/11/17 10/12/17 10/12/17 19:54 04:51 04:51 WBC 9.5 RBC 5.73 Hgb 15.9 Hct 46.7 MCV 81.6 MCH 27.7 MCHC 33.9 RDW 13.4 Plt Count 287 MPV 9.1 Neut % (Auto) 50.8 Lymph % (Auto) 32.8 [place] % (Auto) 6.4 Eos % (Auto) 7.9 H Baso % (Auto) 2.1 H Neut # (Auto) 4.8 Lymph # (Auto) 3.1 [place] # (Auto) 0.6 Eos # (Auto) 0.7 Baso # (Auto) 0.2 pO2 VBG pH VBG pCO2 VBG HCO3 VBG Total CO2 VBG O2 Sat (Calc) VBG Base Excess VBG Potassium Sodium 138 137 Chloride 98 99 Glucose Lactate Potassium 4.6 4.5 Carbon Dioxide 28 26 Anion Gap 17 16 BUN 18 17 Creatinine 1.0 0.9 Est GFR ( Amer) > 60 > 60 Est GFR (Non-Af Amer) > 60 > 60 POC Glucose (mg/dL) Random Glucose 271 H 268 H Hemoglobin A1c Calcium 10.2 9.5 Phosphorus 3.9 Magnesium 1.9 Total Bilirubin 1.3 1.5 H AST 25 34 ALT 35 35 Alkaline Phosphatase 67 75 Total Creatine Kinase CK-MB (Mass) Troponin I < 0.0120 Total Protein 7.2 7.4 Albumin 4.4 4.1 Globulin 2.8 3.3 Albumin/Globulin Ratio 1.6 1.3 Triglycerides 279 H Cholesterol 164 LDL Cholesterol Direct 91 HDL Cholesterol 33 Lipase 221 Free T4 TSH 3rd Generation 2.00 Venous Blood Potassium Urine Color Urine Clarity Urine pH Ur Specific [place] Urine Protein Urine Glucose (UA) Urine Ketones Urine Blood Urine Nitrate Urine Bilirubin Urine Urobilinogen Ur Leukocyte Esterase Urine WBC (Auto) Ur Squamous Epith Cells B-Hydroxybutyrate 0.08 10/12/17 10/12/17 10/12/17 04:51 04:51 04:51 WBC RBC Hgb Hct MCV MCH MCHC RDW Plt Count MPV Neut % (Auto) Lymph % (Auto) [place] % (Auto) Eos % (Auto) Baso % (Auto) Neut # (Auto) Lymph # (Auto) [place] # (Auto) Eos # (Auto) Baso # (Auto) pO2 VBG pH VBG pCO2 VBG HCO3 VBG Total CO2 VBG O2 Sat (Calc) VBG Base Excess VBG Potassium Sodium Chloride Glucose Lactate Potassium Carbon Dioxide Anion Gap BUN Creatinine Est GFR ( Amer) Est GFR (Non-Af Amer) POC Glucose (mg/dL) Random Glucose Hemoglobin A1c 10.4 H Calcium Phosphorus Magnesium Total Bilirubin AST ALT Alkaline Phosphatase Total Creatine Kinase 78 CK-MB (Mass) 0.40 Troponin I < 0.0120 Total Protein Albumin Globulin Albumin/Globulin Ratio Triglycerides Cholesterol LDL Cholesterol Direct HDL Cholesterol Lipase Free T4 1.26 TSH 3rd Generation Venous Blood Potassium Urine Color Urine Clarity Urine pH Ur Specific [place] Urine Protein Urine Glucose (UA) Urine Ketones Urine Blood Urine Nitrate Urine Bilirubin Urine Urobilinogen Ur Leukocyte Esterase Urine WBC (Auto) Ur Squamous Epith Cells B-Hydroxybutyrate 10/12/17 10/12/17 10/12/17 06:15 07:38 11:47 WBC RBC Hgb Hct MCV MCH MCHC RDW Plt Count MPV Neut % (Auto) Lymph % (Auto) [place] % (Auto) Eos % (Auto) Baso % (Auto) Neut # (Auto) Lymph # (Auto) [place] # (Auto) Eos # (Auto) Baso # (Auto) pO2 VBG pH VBG pCO2 VBG HCO3 VBG Total CO2 VBG O2 Sat (Calc) VBG Base Excess VBG Potassium Sodium Chloride Glucose Lactate Potassium Carbon Dioxide Anion Gap BUN Creatinine Est GFR ( Amer) Est GFR (Non-Af Amer) POC Glucose (mg/dL) 243 H 245 H Random Glucose Hemoglobin A1c Calcium Phosphorus Magnesium Total Bilirubin AST ALT Alkaline Phosphatase Total Creatine Kinase 67 CK-MB (Mass) 0.28 Troponin I < 0.0120 Total Protein Albumin Globulin Albumin/Globulin Ratio Triglycerides Cholesterol LDL Cholesterol Direct HDL Cholesterol Lipase Free T4 TSH 3rd Generation Venous Blood Potassium Urine Color Urine Clarity Urine pH Ur Specific [place] Urine Protein Urine Glucose (UA) Urine Ketones Urine Blood Urine Nitrate Urine Bilirubin Urine Urobilinogen Ur Leukocyte Esterase Urine WBC (Auto) Ur Squamous Epith Cells B-Hydroxybutyrate Assessment & Plan - Assessment and Plan (Free Text) Assessment: A/P discussed with Dr. Raphael 47 y/o male with PMHx of DM presented to the ED with left arm weakness, and shortness of breath 1) R/o CVA - CT Head - No acute changes - MRI - patient refused MRI due to claustrophobia - Will repeat CT Head tomorrow - Continue Aspirin and statin
--- NOTE | 2017-10-12 14:11 | VASCLAB ---
Date of service: 10/12/2017 PROCEDURE: HISTORY: Left side weakness COMPARISON: None available. TECHNIQUE: Grayscale and duplex Doppler evaluation of the cervical carotid and vertebral arteries were performed. The common carotid, carotid bifurcations and cervical Internal Carotid Artery (ICA) and proximal External Carotid Artery (ECA) were evaluated. The vertebral arteries were evaluated for gross patency and flow direction. Report prepared by CRISTINA Snowden FINDINGS: RIGHT CAROTID ARTERIES: 1. Common Carotid Artery: No significant focal plaque formation of the right common carotid artery. Maximum Peak Systolic velocity: 75 cm/sec: End-diastolic velocity 19 cm/sec. 2. Carotid Bifurcation: plaque formation. Maximum Peak Systolic velocity: 33 cm/sec: End-diastolic velocity 10 cm/sec. 3. Internal Carotid Artery: Plaque description: 3.1. Proximal Segment: Peak systolic velocity 49 cm/sec: End-diastolic velocity 17 cm/sec - % stenosis 0-15% 3.2. Middle Segment: Peak systolic velocity 69 cm/sec: End-diastolic velocity 27 cm/sec - % stenosis 0-15% 3.3. Distal Segment: Peak systolic velocity 60 cm/sec: End-diastolic velocity 26 cm/sec - % stenosis 0-15% 4. External Carotid Artery: No significant focal plaque formation. Peak systolic velocity 77 cm/sec 5. ICA/CCA Ratio: 1.2 LEFT CAROTID ARTERIES: 1. Common Carotid Artery: No significant focal plaque formation of the left common carotid artery. Maximum Peak Systolic velocity: 95 cm/sec: End-diastolic velocity 18 cm/sec. 2. Carotid Bifurcation: plaque formation. Maximum Peak Systolic velocity: 46 cm/sec: End-diastolic velocity 12 cm/sec. 3. Internal Carotid Artery: Plaque description: 3.1. Proximal Segment: Peak systolic velocity 58 cm/sec: End-diastolic velocity 22 cm/sec - % stenosis 0-15% 3.2. Middle Segment: Peak systolic velocity 75 cm/sec: End-diastolic velocity 27 cm/sec - % stenosis 0-15% 3.3. Distal Segment: Peak systolic velocity 68 cm/sec: End-diastolic velocity 23 cm/sec - % stenosis 0-15% 4. External Carotid Artery: No significant focal plaque formation. Peak systolic velocity 104 cm/sec 5. ICA/CCA Ratio: 1.4 VERTEBRAL ARTERIES: 1. Right Vertebral Artery: The right vertebral artery flow direction is antegrade. 2. Left Vertebral Artery: The left vertebral artery flow direction is antegrade. OTHER FINDINGS: 1. Right Brachial Blood pressure: 130/80 mmHg. 2. Left Brachial Blood pressure: IV lines IMPRESSION: RIGHT: Duplex scan does not suggest hemodynamically significant stenosis of the right extracranial carotid arteries. LEFT: Duplex scan does not suggest hemodynamically significant stenosis of the left extracranial carotid arteries.
--- NOTE | 2017-10-12 14:54 | RAD ---
Date of service: 10/12/2017 PROCEDURE: Radiographs of the Left Shoulder HISTORY: pain with motion COMPARISON: No prior. FINDINGS: BONES: Normal. No fracture. JOINTS: Normal. Glenohumeral and acromioclavicular joints preserved. No osteoarthritis. SOFT TISSUES: Normal. OTHER FINDINGS: None. IMPRESSION: Normal radiographs of the left shoulder.
[2017-10-12 16:42] VITALS: RESP 20
[2017-10-12] MEDS ORDERED: (Novolog Mix 70/30) Insulin Aspart/Insulin Aspar 100 units/ml SC SCH (22:00)
--- NOTE | 2017-10-12 22:11 | CARD ---
APPROVED REPORT Date of service: 10/12/2017 EXAM: Two-dimensional and M-mode echocardiogram with Doppler and color Doppler. Other Information Quality : GoodRhythm : INDICATION CVA/TIA Dyspnea Chest Pain RISK FACTORS Hypertension Diabetes 2D DIMENSIONS IVSd1.0 (0.7-1.1cm)Aortic Root (2D)3.1 (2.0-3.7cm) LVDd4.2 (3.9-5.9cm)PWd0.7 (0.7-1.1cm) LVDs2.5 (2.5-4.0cm)FS (%) 41.8 % LVEF (%)73.1 (>50%) M-Mode DIMENSIONS RVDd2.34 (2.1-3.2cm)Left Atrium (MM)3.81 (2.5-4.0cm) IVSd0.79 (0.7-1.1cm)Aortic Root2.89 (2.2-3.7cm) LVDd4.95 (4.0-5.6cm)Aortic Cusp Exc.2.11 (1.5-2.0cm) PWd0.88 (0.7-1.1cm)FS (%) 51 % LVDs2.43 (2.0-3.8cm)LVEF (%)70 (>50%) Mitral Valve MV E Pjtygkqu80.6cm/sMV A Ohalgphh10.1cm/sE/A ratio1.7 PISA0.31 cm TDI E/Lateral E'0.0E/Medial E'0.0 Tricuspid Valve TR Peak Trpmvsgc378no/sTR Peak Gr.[id number] LEFT VENTRICLE The left ventricle is normal size. There is normal left ventricular wall thickness. Left ventricle systolic function is normal. The Ejection Fraction is >70%. There is normal LV segmental wall motion. The left ventricular diastolic function is normal. No left ventricle thrombus noted on this study. RIGHT VENTRICLE The right ventricle is normal size. The right ventricular systolic function is normal. ATRIA The left atrium size is normal. The right atrium size is normal. AORTIC VALVE The aortic valve is mildly thickened. The aortic valve is trileaflet. No aortic regurgitation is present. There is no aortic valvular stenosis. There is no aortic valvular vegetation. MITRAL VALVE Mitral annular calcification is mild. There is no evidence of mitral valve prolapse. There is no mitral valve stenosis. Mitral regurgitation is mild. TRICUSPID VALVE The tricuspid valve is normal in structure. There is mild tricuspid regurgitation. Right ventricular systolic pressure is estimated at less than 30 mmHg. There is no pulmonary hypertension. There is no tricuspid valve prolapse or vegetation. There is no tricuspid valve stenosis. PULMONIC VALVE The pulmonic valve is not well visualized. There is trace pulmonic valvular regurgitation. There is no pulmonic valvular stenosis. GREAT VESSELS The aortic root is normal in size. Due to poor image quality, the IVC could not be assessed. PERICARDIAL EFFUSION There is no pericardial effusion. There is no pleural effusion. <Conclusion> The left ventricle is normal size. Left ventricle systolic function is normal. The Ejection Fraction is >70%. The left ventricular diastolic function is normal. The right ventricle is normal size. The right ventricular systolic function is normal. The left atrium size is normal. The right atrium size is normal. Mitral regurgitation is mild. There is mild tricuspid regurgitation. There is trace pulmonic valvular regurgitation.
--- NOTE | 2017-10-12 23:44 | CARD ---
APPROVED REPORT Date of service: 10/11/2017 EKG Measurement Heart [id number] OR [id number] <Conclusion> Sinus rhythm with frequent premature ventricular complexes Otherwise normal ECG
[2017-10-13] MEDS ORDERED: Caffeine Citrated **INJ** 20 MG/ML IV ONE (07:38)
[2017-10-13 07:44] LABS: T4 7.09 ug/dL (5.5-11.0)
[2017-10-13] MEDS: (Novolin R) Insulin Human Regular 100 units/ml vial SC SCH ×2 (08:40→12:19)
[2017-10-13] MEDS: (Novolog Mix 70/30) Insulin Aspart/Insulin Aspar 100 units/ml SC SCH (11:00)
--- NOTE | 2017-10-13 11:06 | CT ---
Date of service: 10/13/2017 PROCEDURE: CT HEAD WITHOUT CONTRAST. HISTORY: Rule out CVA COMPARISON: Comparison made with prior CT scan brain 10/12/2014. TECHNIQUE: Axial computed tomography images were obtained through the head/brain without intravenous contrast. Radiation dose: Total exam DLP = 830.68 mGy-cm. This CT exam was performed using one or more of the following dose reduction techniques: Automated exposure control, adjustment of the mA and/or kV according to patient size, and/or use of iterative reconstruction technique. FINDINGS: HEMORRHAGE: No acute parenchymal, subarachnoid nor extra-axial hemorrhage. No evidence of large acute infarct. Note however that the possibility of a small hyperacute infarct cannot be excluded on this exam therefore clinical correlation recommended. No obvious parenchymal nor extra-axial mass or collection identified on this noncontrast study. Ventricular and sulcal size are within range of normal for this patient's stated age. BRAIN: No mass effect or edema. No atrophy or chronic microvascular ischemic changes. VENTRICLES: No obstructive hydrocephalus. CALVARIUM: Unremarkable. PARANASAL SINUSES: Partial opacification ethmoid air complex. There is also minor mucosal thickening left maxillary antrum and sphenoid sinus. MASTOID AIR CELLS: Unremarkable as visualized. No inflammatory changes. OTHER FINDINGS: None. IMPRESSION: No acute intracranial hemorrhage. Note that the possibility of a tiny hyperacute infarct cannot be excluded and if acute infarct suspected clinically, recommend followup MRI
[2017-10-13 11:43] VITALS: O2SAT 99
--- NOTE | 2017-10-13 13:45 | CP.PCM.PN ---
Subjective - Date & Time of Evaluation Date of Evaluation: 10/13/17 Time of Evaluation: 11:05 - Subjective Subjective: PGY 1 Progress Note for Neurologist Dr. Raphael. Patient seen and examined at bedside. Patient had no overnight events. Patient has new complaints. Patient still has some left shoulder pain, but denies chest pain, SOB, difficulty ambulating, headaches, vision changes. Patient scheduled for second CT head today. Patient refused MRI yesterday 2/2 claustrophobia. Objective - Vital Signs/Intake and Output Vital Signs (last 24 hours): Temp Pulse Resp BP Pulse Ox 97.7 F 58 L 20 123/78 99 10/13/17 11:37 10/13/17 11:37 10/13/17 11:37 10/13/17 11:37 10/13/17 11:37 - Medications Medications: Current Medications Aspirin (Ecotrin) 81 mg PO DAILY [facility] Last Admin: 10/13/17 10:59 Dose: 81 mg Dextrose (Dextrose 50% Inj) 0 ml IV STAT PRN; Protocol PRN Reason: Hypoglycemia Protocol Dextrose (Glutose 15) 0 gm PO ONCE PRN; Protocol PRN Reason: Hypoglycemia Protocol Famotidine (Pepcid) 20 mg PO DAILY [facility] Last Admin: 10/13/17 10:59 Dose: 20 mg Gabapentin (Neurontin) 100 mg PO TID [facility] Last Admin: 10/13/17 10:59 Dose: 100 mg Glucagon (Glucagen Diagnostic Kit) 0 mg IM STAT PRN; Protocol PRN Reason: Hypoglycemia Protocol Dextrose (Dextrose 5% In Water 1000 Ml) 1,000 mls @ 0 mls/hr IV .Q0M PRN; Protocol; Per Protocol PRN Reason: Hypoglycemia Protocol Insulin Aspart (Novolog Mix 70/30 (70/30 Units/Ml)) 25 units SC DAILY [facility] Last Admin: 10/13/17 11:00 Dose: 25 units Insulin Aspart (Novolog Mix 70/30 (70/30 Units/Ml)) 18 units SC HS [facility] Last Admin: 10/12/17 21:45 Dose: 18 units Insulin Human Regular (Novolin R) 0 unit SC ACHS [facility] PRN Reason: Protocol Last Admin: 10/13/17 12:19 Dose: 4 units Lisinopril (Zestril) 2.5 mg PO DAILY [facility] Last Admin: 10/13/17 10:59 Dose: 2.5 mg Pneumococcal Polyvalent Vaccine (Pneumovax 23 Vaccine) 0.5 ml IM .ONCE ONE Stop: 10/14/17 10:01 Rosuvastatin Calcium (Crestor) 5 mg PO HS [facility] Last Admin: 10/12/17 21:47 Dose: 5 mg - Labs Labs: 10/12/17 04:51 10/12/17 04:51 - Constitutional Appears: Well, Non-toxic, No Acute Distress - Eye Exam Eye Exam: EOMI, Normal appearance, PERRL Pupil Exam: NORMAL ACCOMODATION - Neurological Exam Neurological Exam: Alert, Awake, CN II-XII Intact, Normal Gait, Oriented x3 Neuro motor strength exam: Left Upper Extremity: 5, Right Upper Extremity: 5, Left Lower Extremity: 5, Right Lower Extremity: 5 Additional comments: Normal gait Assessment and Plan - Assessment and Plan (Free Text) Assessment: A/P discussed with Dr. Raphael 47 y/o male with PMHx of DM presented to the ED with left arm weakness, and shortness of breath 1) R/o CVA - 2nd CT Head - No acute changes - less likely CVA - MRI - patient refused MRI due to claustrophobia - Continue Aspirin and statin - Cleared from neurology please re-consult if necessary. thank you.
[2017-10-13 14:29] LABS: BASO # 0.1 K/uL (0.0-0.2); BASO % 1.3 % (0.0-2.0); EOS # 0.7 K/uL (0.0-0.7); EOS % 7.7 % (0.0-4.0); HEMOGLOBIN 16.8 g/dL (12.0-18.0); LYMPH # 2.4 K/uL (1.0-4.3); LYMPH % 26.2 % (20.0-40.0); MEAN CELL VOLUME 83.1 fL (80.0-94.0); MEAN CORPUSCULAR HEMOGLOBIN 27.5 pg (27.0-31.0); MEAN CORPUSCULAR HGB CONC 33.1 g/dL (33.0-37.0); MEAN PLATELET VOLUME 9.9 fL (7.2-11.7); MONO # 0.5 K/uL (0.0-0.8); MONO % 5.2 % (0.0-10.0); NEUT # 5.5 K/uL (1.8-7.0); NEUT % 59.6 % (50.0-75.0); NRBC % 0.3 % (0.0-2.0); RBC 6.1 Mil/uL (4.40-5.90); RED CELL DISTRIBUTION WIDTH 14.1 % (11.5-14.5); WHITE BLOOD COUNT 9.3 K/uL (4.8-10.8)
[2017-10-13 14:31] LABS: ALB/GLOB RATIO 1.4 (1.0-2.1); ALBUMIN 4.6 g/dL (3.5-5.0); ALT/SGPT 36 U/L (21-72); AST/SGOT 25 U/L (17-59); BLOOD UREA NITROGEN 13 mg/dL (9-20); CALCIUM 9.4 mg/dl (8.6-10.4); GFR NON-AFRICAN AMERICAN > 60
[2017-10-13 15:52] VITALS: PULSE 56
--- NOTE | 2017-10-13 15:52 | CP.PCM.DIS ---
Provider - Provider Date of Admission: 10/11/17 22:34 Attending physician: Marquez Peralta MD Time Spent in preparation of Discharge (in minutes): 45 Diagnosis - Discharge Diagnosis (1) Arm weakness Status: Resolved (2) Chest pain Status: Resolved (3) PVC (premature ventricular contraction) Status: Resolved Hospital Course - Lab Results Lab Results: Most Recent Lab Values WBC 9.3 K/uL (4.8-10.8) 10/13/17 14:07 RBC 6.10 Mil/uL (4.40-5.90) H 10/13/17 14:07 Hgb 16.8 g/dL (12.0-18.0) 10/13/17 14:07 Hct 50.7 % (35.0-51.0) 10/13/17 14:07 MCV 83.1 fL (80.0-94.0) 10/13/17 14:07 MCH 27.5 pg (27.0-31.0) 10/13/17 14:07 MCHC 33.1 g/dL (33.0-37.0) 10/13/17 14:07 RDW 14.1 % (11.5-14.5) 10/13/17 14:07 Plt Count 301 K/uL (130-400) 10/13/17 14:07 MPV 9.9 fL (7.2-11.7) 10/13/17 14:07 Neut % (Auto) 59.6 % (50.0-75.0) 10/13/17 14:07 Lymph % (Auto) 26.2 % (20.0-40.0) 10/13/17 14:07 Sharkey % (Auto) 5.2 % (0.0-10.0) 10/13/17 14:07 Eos % (Auto) 7.7 % (0.0-4.0) H 10/13/17 14:07 Baso % (Auto) 1.3 % (0.0-2.0) 10/13/17 14:07 Neut # (Auto) 5.5 K/uL (1.8-7.0) 10/13/17 14:07 Lymph # (Auto) 2.4 K/uL (1.0-4.3) 10/13/17 14:07 Sharkey # (Auto) 0.5 K/uL (0.0-0.8) 10/13/17 14:07 Eos # (Auto) 0.7 K/uL (0.0-0.7) 10/13/17 14:07 Baso # (Auto) 0.1 K/uL (0.0-0.2) 10/13/17 14:07 pO2 35 mm/Hg (30-55) 10/11/17 19:50 VBG pH 7.36 (7.32-7.43) 10/11/17 19:50 VBG pCO2 34 mmHg (40-60) L 10/11/17 19:50 VBG HCO3 19.8 mmol/L 10/11/17 19:50 VBG Total CO2 20.2 mmol/L (22-28) L 10/11/17 19:50 VBG O2 Sat (Calc) 70.2 % (40-65) H 10/11/17 19:50 VBG Base Excess -5.4 mmol/L (0.0-2.0) L 10/11/17 19:50 VBG Potassium 2.7 mmol/L (3.6-5.2) L 10/11/17 19:50 Sodium 143.0 mmol/l (132-148) 10/11/17 19:50 Chloride 112.0 mmol/L (98-107) H 10/11/17 19:50 Glucose 207 mg/dl (75-110) H 10/11/17 19:50 Lactate 1.2 mmol/L (0.7-2.1) 10/11/17 19:50 Sodium 138 mmol/L (132-148) 10/13/17 14:07 Potassium 4.0 mmol/L (3.6-5.2) 10/13/17 14:07 Chloride 97 mmol/L (98-107) L 10/13/17 14:07 Carbon Dioxide 25 mmol/L (22-30) 10/13/17 14:07 Anion Gap 20 (10-20) 10/13/17 14:07 BUN 13 mg/dL (9-20) 10/13/17 14:07 Creatinine 0.7 mg/dL (0.8-1.5) L 10/13/17 14:07 Est GFR ( Amer) > 60 10/13/17 14:07 Est GFR (Non-Af Amer) > 60 10/13/17 14:07 POC Glucose (mg/dL) 262 mg/dL (65-110) H 10/13/17 06:07 Random Glucose 335 mg/dL (75-110) H 10/13/17 14:07 Hemoglobin A1c 10.4 % (4.2-6.5) H 10/12/17 04:51 Calcium 9.4 mg/dl (8.6-10.4) 10/13/17 14:07 Phosphorus 3.4 mg/dL (2.5-4.5) 10/13/17 14:07 Magnesium 1.9 mg/dL (1.6-2.3) 10/13/17 14:07 Total Bilirubin 1.5 mg/dL (0.2-1.3) H 10/13/17 14:07 AST 25 U/L (17-59) 10/13/17 14:07 ALT 36 U/L (21-72) 10/13/17 14:07 Alkaline Phosphatase 72 U/L (38-126) 10/13/17 14:07 Total Creatine Kinase 67 U/L (55-170) 10/12/17 11:47 CK-MB (Mass) 0.28 ng/mL (0.0-3.38) 10/12/17 11:47 Troponin I < 0.0120 ng/mL (0.00-0.120) 10/12/17 11:47 Total Protein 7.8 g/dL (6.3-8.3) 10/13/17 14:07 Albumin 4.6 g/dL (3.5-5.0) 10/13/17 14:07 Globulin 3.3 gm/dL (2.2-3.9) 10/13/17 14:07 Albumin/Globulin Ratio 1.4 (1.0-2.1) 10/13/17 14:07 Triglycerides 279 mg/dL (0-149) H 10/12/17 04:51 Cholesterol 164 mg/dL (0-199) 10/12/17 04:51 LDL Cholesterol Direct 91 mg/dL (0-129) 10/12/17 04:51 HDL Cholesterol 33 mg/dL (30-70) 10/12/17 04:51 Lipase 221 U/L (23-300) 10/11/17 19:54 Free T4 1.26 ng/dL (0.78-2.19) 10/12/17 04:51 Thyroxine (T4) 7.09 ug/dL (5.5-11.0) 10/13/17 07:01 TSH 3rd Generation 1.45 mIU/L (0.46-4.68) 10/13/17 07:01 Venous Blood Potassium 2.7 mmol/L (3.6-5.2) L 10/11/17 19:50 Urine Color Yellow (YELLOW) 10/11/17 19:38 Urine Clarity Clear (Clear) 10/11/17 19:38 Urine pH 5.0 (5.0-8.0) 10/11/17 19:38 Ur Specific [place] 1.014 (1.003-1.030) 10/11/17 19:38 Urine Protein Negative mg/dL (NEGATIVE) 10/11/17 19:38 Urine Glucose (UA) 3+ mg/dL (Normal) H 10/11/17 19:38 Urine Ketones Negative mg/dL (NEGATIVE) 10/11/17 19:38 Urine Blood Negative (NEGATIVE) 10/11/17 19:38 Urine Nitrate Negative (NEGATIVE) 10/11/17 19:38 Urine Bilirubin Negative (NEGATIVE) 10/11/17 19:38 Urine Urobilinogen Normal mg/dL (0.2-1.0) 10/11/17 19:38 Ur Leukocyte Esterase Neg Scottie/uL (Negative) 10/11/17 19:38 Urine WBC (Auto) < 1 /hpf (0-5) 10/11/17 19:38 Ur Squamous Epith Cells < 1 /hpf (0-5) 10/11/17 19:38 B-Hydroxybutyrate 0.08 mM (0.02-0.27) 10/11/17 19:54 - Hospital Course Hospital Course: CC: fall HPI: 86 F with a PMH of rheumatic heart disease, Afib, Rheumatoid arthritis, Right pelvic fracture, and HTN presents to the ED for a fall. Patient states that she was taking out the recycling around 6:30pm when she tripped and fell down the stairs. Patient states she had lost consciousness during the fall and only regained it on the ambulance ride and again in the ED. Patient states that from what she can recall, she fell from the 4th or 5th step of her porch. Patient states she was told that her neighbor had seen her fall and called the ambulance. In the ED, patient complains of right knee pain. On examination patient has bruising of the right eye, right jaw, laceration of her middle third digit of the left hand, and a hematoma on her right knee. Patient states she has a hard time opening her right eye due to the swelling. Patient denies any sensation loss or weakness of the lacerated left middle finger. Patient does state she has a slight headache from the fall, but does not have any dizziness or blurry vision. On examination, patient denies fever, chills, nausea , vomiting, diarrhea, abdominal pain, changes in urinary or bowel habits, SOB, chest pain, and chest palpitations. Cardio: Dr. Samuel Allergies: NKDA, sensitive to strong fragrances PMH: Rheumatic heart disease, Afib, rheumatoid arthritis, Right pelvic fracture , and HTN PSHx: Cyst removal from the Left breast x2 Social: patient denies smoking and drug use; patient drink alcohol- 1 glass of wine on the weekend Family Hx: none Meds: Elliquis 2.5mg BID, losartan (which she stopped taking in June), Vitamins ( Centrum Silver), Calcium and Vitamin D supplements Pt was evaluated for a possible stroke but was ruled out with imaging and neuro (Dr Raphael) evaluation. Cardio (Dr Manzano) was consulted to r/o cardiac etiologies. Stress testing was neg. Pt likely suffered from TIA. Pt medcially stable for d/c Imaging and Diagnostics: CXR: mild pulm don congestion CT head: neg for bleed, neg for acute ischemic changes CT chest: patchy diffuse ground glass infiltrates Carotid dopp: neg L michael Xray: neg INSTRUCTIONS: Schedule an appointment within one week [facility] . Pt will be able to establish care with Neurology once seen at clinic. Pt should be evaluated for TIS and have lung volumes measured. Discharge Exam - Head Exam Head Exam: ATRAUMATIC, NORMAL INSPECTION - Additional Findings Additional findings: - Constitutional Appears: Well, No Acute Distress - Head Exam Head Exam: ATRAUMATIC, NORMAL INSPECTION - Eye Exam Eye Exam: EOMI, Normal appearance - ENT Exam ENT Exam: Mucous Membranes Moist - Respiratory Exam Respiratory Exam: Clear to Auscultation Bilateral, NORMAL BREATHING PATTERN. absent: Rales, Rhonchi, Wheezes - Cardiovascular Exam Cardiovascular Exam: REGULAR RHYTHM, +S1, +S2 - GI/Abdominal Exam GI & Abdominal Exam: Soft. absent: Normal Bowel Sounds - Extremities Exam Extremities exam: Positive for: normal inspection L michael pain with ROM - Neurological Exam Neurological exam: Alert, Oriented x3 - Psychiatric Exam Psychiatric exam: Normal Affect, Normal Mood - Skin Skin Exam: Normal Color, Warm Discharge Plan - Follow Up Plan Condition: FAIR Disposition: HOME/ ROUTINE Instructions: Arrhythmias (DC), Chest Pain (DC) Referrals: Edu Manzano MD [Staff Provider] - Vinay Raphael MD [Staff Provider] - Cm Da Silva DO [Doctor Osteopathy] -
[2017-10-13] MEDS ORDERED: Pneumococcal 23-Valent Vaccine IM ONE (16:10)
[2017-10-13 16:34] VITALS: BP 124/68; TEMP 97.6
--- NOTE | 2017-10-13 22:08 | CARD ---
APPROVED REPORT Date of service: 10/13/2017 Protocol: PHARMACOLOGICAL STRESS Test Type: LEXISCAN Test Indications: CHEST PAIN Medications: LIST SCAN Medical History: CHEST PAIN Target HR: 173 bpm Resting ECG: normal, PVCs Resting Heart Rate: 62 bpm Resting Blood Pressure: 100/80mmHg submaximum (85%): 147 bpm TEST SUMMARY [id number]/80.11. INFUSIONDOSE 100:330.010.01.060/.7. [id number]/60.0. PROCEDURE Pharmacologic stress testing was performed using 0.4mg per 5ml of regadenoson given intravenously over 7-10 seconds. POST EXERCISE Reason for Termination: Protocol Completed Target HR: No Max HR: 60 bpm 68% of Maximum Predicted HR: 173 bpm Exercise duration: 00:33 min:sec, 1 Stage Exercise capacity: 1.0METs Max Blood Pressure: 122/60mmHg Blood Pressure response to exercise: normal resting BP - appropriate response Heart Rate response to exercise: appropriate Chest Pain: No, none Angina index: 0 Arrhythmia: No, none ST Change: No, none Deviation: 0 mm INTERPRETATION Stress EKG Conclusion: Nuclear report to follow EXAM: Myocardial Perfusion STRESS/REST Imaging Protocol The imaging protocol used to acquire images was Stress Tc-99m/rest Tc-99m 1 day Rest Spect myocardial perfusion imaging was performed in supine position 45 minutes following the injection of 32.1 mCi of Tc-99 Myoview. Gated Stress Spect was performed 45 minutes after intravenous 12.6 mCi Tc-99 Myoview injection. The images were gated to evaluate regional wall motion and calculate ventricular ejection fraction.Images were reconstructed using backfilter projection method in short horizontal and verticle long axis. Spect slices were generated. RESTING DATA EDV58.68peBX8.70L/min ESV13.00mlMyocardial Mass94.00g Av. Heart Rate38.00bpm EF78.00% STRESS DATA EDV54.00waBB0.40L/min ESV15.00mlMyocardial Mass93.00g EF72.00% Regional WT score at stress:0.00 Regional WM score at stress:0.00 Summed WT score at stress:10.00 Av. Heart Rate61.00bpmSummed WM score at stress:2.00 LV Perf. Quant 17 Seg. SSS1.00 17 Seg. SRS0.00 17 Seg. SDS1.00 Stress Defect Extent (% LAD)0.00Rest Defect Extent (% LAD)0.00Rev. Defect Extent (% LAD)0.00 Stress Defect Extent (% LCX)7.50Rest Defect Extent (% LCX)0.00Rev. Defect Extent (% LCX)0.00 Stress Defect Extent (% RCA)0.00Rest Defect Extent (% RCA)0.00Rev. Defect Extent (% RCA)0.00 Stress Defect Extent (% BARB)1.30Rest Defect Extent (% BARB)0.00Rev. Defect Extent (% BARB)0.00 Other Information Quality:Good IMPRESSION Normal Myocardial Perfusion exercise stress study Left Ventricle LV Function:Left ventricle systolic function is normal. The Ejection Fraction is >55%. Metabolism/Perfusion There are no perfusion/metabolism defects. Conclusion 1. Normal Lexiscan Nuclear Stress Test
[2017-10-14] MEDS ORDERED: Pneumococcal 23-Valent Vaccine IM ONE (10:00)
== END 2017-10-13 16:30 | disposition home or self-care (01) | DRG 247 ==
LOC: C.ER 17:05 → C.9E 22:34 → C.5S 10-12 10:01
PROVIDERS: ADMIT Family Medicine; ATTEND Family Medicine
DX: M62.81 Muscle weakness (generalized) (principal); E11.40 Type 2 diabetes mellitus with diabetic neuropathy, unspecified; R07.89 Other chest pain; R06.02 Shortness of breath; I10 Essential (primary) hypertension; I49.3 Ventricular premature depolarization; I48.91 Unspecified atrial fibrillation; I25.10 Atherosclerotic heart disease of native coronary artery without angina pectoris; F40.240 Claustrophobia; E78.1 Pure hyperglyceridemia; Z79.4 Long term (current) use of insulin; Z53.29 Procedure and treatment not carried out because of patient's decision for other reasons; Z86.19 Personal history of other infectious and parasitic diseases